=== PATIENT | male | born 1950 | race Caucasian/White ===

== ENCOUNTER 2021-10-28 17:49 | Inpatient (IN) ==
[2021-10-28] MEDS ORDERED: Isovue-370 500 ML BOTTLE IVP ONE (19:54)
[2021-10-28 20:43] LABS: Basophils % 0.3 %; Eosinophils # 0.1 K/mcL (0.0-0.6); Eosinophils % 1.3 %; Hematocrit 45.5 % (37.5-50.1); Hemoglobin 15.1 g/dL (12.9-16.9); Immature Granulocytes % 0.3 % (0-4); Lymphocytes # 1.4 K/mcL (0.6-4.6); Lymphocytes % 15.4 %; Mean Corpuscular HGB Conc 33.2 g/dL (31.6-35.5); Mean Corpuscular Hemoglobin 29.5 pg (28.0-33.3); Mean Corpuscular Volume 88.9 fL (83.0-100.0); Mean Platelet Volume 9.7 fL (9.4-12.4); Monocytes # 0.7 K/mcL (0.0-1.3); Monocytes % 8.4 %; Neutrophils # 6.5 K/mcL (1.6-8.9); Platelet Count 212 K/mcL (140-400); Red Blood Count 5.12 M/mcL (4.19-5.50); Red Cell Distribution Width 11.7 % (11.5-14.5); Segmented Neutrophils % 74.3 %; White Blood Count 8.8 K/mcL (4.3-11.1)
[2021-10-28 20:48] LABS: INR 1.2; Prothrombin Time 13.3 Seconds (9.4-12.1)
[2021-10-28 20:50] LABS: Activated Partial Thrombo Time 38.5 Seconds (26.0-36.0)
[2021-10-28 21:04] LABS: Alanine Aminotransferase 16 Units/L (7-52); Albumin 4.4 g/dL (3.5-5.7); Albumin/Globulin Ratio 1.6 (1.1-2.2); Alkaline Phosphatase 47 Units/L (34-104); Aspartate Amino Transferase 16 Units/L (13-39); BUN/Creatinine Ratio 36 (6-26); Bilirubin,Direct 0.2 mg/dL (0.0-0.2); Bilirubin,Indirect 0.7 mg/dL (0.0-1.0); Bilirubin,Total 0.9 mg/dL (0.3-1.0); Blood Urea Nitrogen 44 mg/dL (8-23); Calcium 9.8 mg/dL (8.6-10.3); Carbon Dioxide 29 mEq/L (23-29); Chloride 102 mEq/L (98-107); Globulin 2.8 g/dL (2.4-3.5); Glucose 105 mg/dL (70-105); Osmolality,Calculated 288 (280-300); Potassium 4.6 mEq/L (3.5-5.1); Sodium 133 mEq/L (136-145); Total Protein 7.2 g/dL (6.4-8.9); Troponin I < 0.03 ng/mL (< 0.04); eGFR For African Americans > 60 (> 60); eGFR For Non-African Americans 59 (> 60)
[2021-10-28] MEDS ORDERED: *HR* Heparin 5,000 UNIT/ML VIAL IVP ONE (22:42)
[2021-10-28] MEDS ORDERED: *HR* Heparin 5,000 UNIT/ML VIAL IVP PRN ×2 (22:42)
[2021-10-28] MEDS: Heparin 25,000UNIT/250ML 1/2NS 25,000 UNIT/250 ML IV.SOLN IVC SCH (23:05)
[2021-10-28 23:22] LABS: Heparin anti-factor XA UFH < 0.04 IU/mL (0.30-0.70)
[2021-10-28 23:23] LABS: INR 1.2; Prothrombin Time 13.3 Seconds (9.4-12.1)
[2021-10-28 23:37] LABS: Influenza A PCR Negative (Negative); Influenza B PCR Negative (Negative); Resp. Syncytial Virus PCR Negative (Negative)
[2021-10-28 23:38] LABS: SARS-CoV-2 by PCR (In House) Negative (Negative)
[2021-10-29] MEDS ORDERED: Naloxone 0.4 MG/ML INJ IVP PRN (02:04)
[2021-10-29] MEDS ORDERED: Ondansetron 4 MG/2 ML VIAL IVP PRN (02:10)
[2021-10-29] MEDS ORDERED: Acetaminophen 325 MG TABLET PO PRN (02:10)
[2021-10-29] MEDS ORDERED: Perflutren Lipid Microsphere 1.3 ML in 0.9 % Sodium Chloride 8.7 ML IVP PRN (02:47)
[2021-10-29] MEDS: Famotidine 20 MG/2 ML VIAL IVP SCH ×2 (05:28→17:40)
[2021-10-29 06:12] LABS: Hematocrit 44.5 % (37.5-50.1); Hemoglobin 15.2 g/dL (12.9-16.9); Mean Corpuscular HGB Conc 34.2 g/dL (31.6-35.5); Mean Corpuscular Hemoglobin 30.3 pg (28.0-33.3); Mean Corpuscular Volume 88.6 fL (83.0-100.0); Mean Platelet Volume 9.8 fL (9.4-12.4); Platelet Count 231 K/mcL (140-400); Red Blood Count 5.02 M/mcL (4.19-5.50); Red Cell Distribution Width 11.9 % (11.5-14.5); White Blood Count 7.7 K/mcL (4.3-11.1)
[2021-10-29 06:28] LABS: BUN/Creatinine Ratio 31 (6-26); Blood Urea Nitrogen 35 mg/dL (8-23); Calcium 9.5 mg/dL (8.6-10.3); Carbon Dioxide 26 mEq/L (23-29); Chloride 100 mEq/L (98-107); Cholesterol 102 mg/dL (< 200); Glucose 103 mg/dL (70-105); HDL Cholesterol 34 mg/dL (40-59); LDL Cholesterol,Calculated 52 mg/dL (< 100); Magnesium 2.5 mg/dL (1.6-2.6); Osmolality,Calculated 284 (280-300); Potassium 4.6 mEq/L (3.5-5.1); Sodium 133 mEq/L (136-145); Triglycerides 78 mg/dL (< 150); eGFR For African Americans > 60 (> 60); eGFR For Non-African Americans > 60 (> 60)
[2021-10-29 09:58] LABS: Estimated Average Glucose 126 mg/dl
[2021-10-29 14:20] LABS: Hematocrit 44.8 % (37.5-50.1); Hemoglobin 15.2 g/dL (12.9-16.9); Mean Corpuscular HGB Conc 33.9 g/dL (31.6-35.5); Mean Corpuscular Hemoglobin 30.1 pg (28.0-33.3); Mean Corpuscular Volume 88.7 fL (83.0-100.0); Mean Platelet Volume 9.8 fL (9.4-12.4); Platelet Count 229 K/mcL (140-400); Red Blood Count 5.05 M/mcL (4.19-5.50); Red Cell Distribution Width 11.9 % (11.5-14.5); White Blood Count 7.3 K/mcL (4.3-11.1)
[2021-10-29 14:58] LABS: BUN/Creatinine Ratio 28 (6-26); Blood Urea Nitrogen 32 mg/dL (8-23); Calcium 9.6 mg/dL (8.6-10.3); Carbon Dioxide 27 mEq/L (23-29); Chloride 104 mEq/L (98-107); Glucose 144 mg/dL (70-105); Osmolality,Calculated 281 (280-300); Potassium 4.3 mEq/L (3.5-5.1); Sodium 131 mEq/L (136-145); eGFR For African Americans > 60 (> 60); eGFR For Non-African Americans > 60 (> 60)
[2021-10-29] MEDS: Heparin 25,000UNIT/250ML 1/2NS 25,000 UNIT/250 ML IV.SOLN IVC SCH (17:59)
[2021-10-30 03:13] LABS: Hematocrit 44.5 % (37.5-50.1); Hemoglobin 15.1 g/dL (12.9-16.9); Mean Corpuscular HGB Conc 33.9 g/dL (31.6-35.5); Mean Corpuscular Hemoglobin 30.3 pg (28.0-33.3); Mean Corpuscular Volume 89.4 fL (83.0-100.0); Mean Platelet Volume 9.8 fL (9.4-12.4); Platelet Count 227 K/mcL (140-400); Red Blood Count 4.98 M/mcL (4.19-5.50); Red Cell Distribution Width 11.9 % (11.5-14.5); White Blood Count 8.2 K/mcL (4.3-11.1)
[2021-10-30 03:33] LABS: BUN/Creatinine Ratio 25 (6-26); Blood Urea Nitrogen 30 mg/dL (8-23); Calcium 9.5 mg/dL (8.6-10.3); Carbon Dioxide 29 mEq/L (23-29); Chloride 102 mEq/L (98-107); Glucose 108 mg/dL (70-105); Osmolality,Calculated 285 (280-300); Potassium 4.5 mEq/L (3.5-5.1); Sodium 134 mEq/L (136-145); eGFR For African Americans > 60 (> 60); eGFR For Non-African Americans 59 (> 60)
[2021-10-30] MEDS: Famotidine 20 MG/2 ML VIAL IVP SCH ×2 (05:16→18:00)
[2021-10-30] MEDS: lisinopriL 20 MG TABLET PO SCH (10:27)
[2021-10-30] MEDS: Loratadine 10 MG TABLET PO SCH (10:27)
[2021-10-30] MEDS: Lactobacillus 1 EACH CAP.SPRINK PO SCH (10:27)
[2021-10-30] MEDS: Aspirin Enteric Coated 81 MG Tablet PO SCH (10:27)
[2021-10-30] MEDS: hydroCHLOROthiazide 25 MG TABLET PO SCH (10:27)
[2021-10-30] MEDS: Heparin 25,000UNIT/250ML 1/2NS 25,000 UNIT/250 ML IV.SOLN IVC SCH (12:29)
[2021-10-30] MEDS: Apixaban 5 MG TABLET PO SCH (21:08)
[2021-10-31] MEDS: Famotidine 20 MG/2 ML VIAL IVP SCH (05:51)
[2021-10-31 07:05] VITALS: BP 109/73; PULSE 70; TEMP 97.7; O2SAT 97
[2021-10-31] MEDS: Apixaban 5 MG TABLET PO SCH (07:41)
[2021-10-31] MEDS: lisinopriL 20 MG TABLET PO SCH (07:41)
[2021-10-31] MEDS: hydroCHLOROthiazide 25 MG TABLET PO SCH (07:41)
[2021-10-31] MEDS: Aspirin Enteric Coated 81 MG Tablet PO SCH (07:41)
[2021-10-31] MEDS: Lactobacillus 1 EACH CAP.SPRINK PO SCH (07:41)
[2021-10-31] MEDS: Loratadine 10 MG TABLET PO SCH (07:41)
[2021-10-31 12:32] LABS: Adenovirus Not Detected (Not Detect); Bordetella Pertussis Not Detected (Not Detect); Chlamydophila pneumoniae Not Detected (Not Detect); Coronavirus 229E Not Detected (Not Detect); Coronavirus HKU1 Not Detected (Not Detect); Coronavirus NL63 Not Detected (Not Detect); Coronavirus OC43 Not Detected (Not Detect); Human Metapneumovirus Not Detected (Not Detect); Human Rhinovirus/Enterovirus Not Detected (Not Detect); Influenza A Subtype 2009 H1 Not Detected (Not Detect); Influenza B Not Detected (Not Detect); Mycoplasma pneumoniae Not Detected (Not Detect); Parainfluenza Virus 1 Not Detected (Not Detect); Parainfluenza Virus 2 Not Detected (Not Detect); Parainfluenza Virus 3 Not Detected (Not Detect); Parainfluenza Virus 4 Not Detected (Not Detect); Respiratory Syncytial Virus Not Detected (Not Detect); SARS-CoV-2 Not Detected (Not Detect)
[2021-11-06] MEDS ORDERED: Apixaban 5 MG TABLET PO SCH (21:00)
== END 2021-10-31 15:24 | DRG 176 ==
LOC: EMEROOARM 17:49 → CDU 17:49 → SUATTDRO 23:17 → 4WAOSI 10-29 01:52 → SUATTDRO 10-30 16:22
PROVIDERS: ADMIT Student in an Organized Health Care Education/Training Program; ATTEND Registered Nurse